=== PATIENT | male | born 1975 | race Caucasian/White ===

== ENCOUNTER 2020-01-29 15:07 | Emergency (ER) | payer MEDICAID ==
--- NOTE | 2020-01-29 16:10 | EDM.PDOC ---
ED HPI GENERAL MEDICAL PROBLEM - General Chief Complaint: Skin Complaint Stated Complaint: MAYBE AN INFECTION IN RIGHT UPPER LEG/BACK Time Seen by Provider: 01/29/20 15:10 Source of Information: Reports: Patient History Limitations: Reports: No Limitations - History of Present Illness INITIAL COMMENTS - FREE TEXT/NARRATIVE: took testosterone injection in the right gluteal region about one week ago , since then has swelling in the area that has persisted and increased in size , now getting painful has been on testosterone injections for a long time takes in different sites used to take to build muscle now has low testosterone Onset: Gradual Onset Date: 01/22/20 Duration: Day(s): (7), Getting Worse Location: Reports: Pelvis Quality: Reports: Ache Associated Symptoms: Reports: No Other Symptoms - Related Data Allergies Allergy/AdvReac Type Severity Reaction Status Date / Time No Known Allergies Allergy Verified 01/29/20 16:13 Home Meds: Home Meds Diclofenac Sodium [Voltaren 1% Gel] 1 applic TOP BID #1 tube 01/29/20 [Rx] ED ROS GENERAL - Review of Systems Review Of Systems: See Below Constitutional: Reports: No Symptoms, Fever, Chills, Malaise HEENT: Reports: No Symptoms Respiratory: Reports: No Symptoms Cardiovascular: Reports: No Symptoms Endocrine: Reports: No Symptoms GI/Abdominal: Reports: No Symptoms Skin: Reports: Lesions (in right gluteal region), Lumps ED EXAM, SKIN/RASH Exam: See Below Exam Limited By: No Limitations General Appearance: Alert, WD/WN, No Apparent Distress Eye Exam: Bilateral Eye: EOMI Ears: Normal External Exam Throat/Mouth: Normal Oropharynx Head: Atraumatic, Normocephalic Neck: Supple, Non-Tender Respiratory/Chest: No Respiratory Distress, Lungs Clear, Normal Breath Sounds Cardiovascular: Regular Rate, Rhythm GI/Abdominal: Soft, Non-Tender Back Exam: Other (gluteal swelling) Neurological: Alert, Oriented, CN II-XII Intact Skin: Other (right gluteal swwelling about [id number], tender firm to hard, non fluctuant) Course - Orders/Labs/Meds Labs: Laboratory Tests 01/29/20 01/29/20 01/29/20 Range/Units 15:48 16:03 16:03 WBC 10.9 (4.5-12.0) X10-3/uL RBC 4.97 (4.30-5.75) x10(6)uL Hgb 15.0 (13.5-17.8) g/dL Hct 44.6 (30.0-51.3) % MCV 89.7 (80-96) fL MCH 30.1 (27.7-33.6) pg MCHC 33.6 (32.2-35.4) g/dL RDW 13.0 (11.5-15.5) % Plt Count 398 H (125-369) X10(3)uL MPV 7.4 (7.4-10.4) fL Neut % (Auto) 82.8 H (46-82) % Lymph % (Auto) 10.1 L (13-37) % [place] % (Auto) 5.9 (4-12) % Eos % (Auto) 1 (1.0-5.0) % Baso % (Auto) 0 (0-2) % Neut # (Auto) 9.1 H (1.6-8.3) # Lymph # (Auto) 1.1 (0.6-5.0) # [place] # (Auto) 0.6 (0.0-1.3) # Eos # (Auto) 0.1 (0.0-0.8) # Baso # (Auto) 0.0 (0.0-0.2) # Sodium 136 (135-145) mmol/L Potassium 4.4 (3.5-5.3) mmol/L Chloride 98 L (100-110) mmol/L Carbon Dioxide 30 (21-32) mmol/L BUN 15 (7-18) mg/dL Creatinine 1.3 (0.70-1.30) mg/dL Est Cr Clr Drug Dosing TNP Estimated GFR (MDRD) 59 L (>60) BUN/Creatinine Ratio 11.5 (9-20) Glucose 78 L (80-116) mg/dL Calcium 9.6 (8.6-10.2) mg/dL C-Reactive Protein (0.5-0.9) mg/dL Urine Color Yellow (YELLOW) Urine Appearance Clear (CLEAR) Urine pH 7.0 H (5.0-6.5) Ur Specific [place] 1.005 L (1.010-1.025) Urine Protein Negative (NEGATIVE) mg/dL Urine Glucose (UA) Normal (NORMAL) mg/dL Urine Ketones Negative (NEGATIVE) mg/dL Urine Occult Blood Moderate H (NEGATIVE) Urine Nitrite Negative (NEGATIVE) Urine Bilirubin Negative (NEGATIVE) Urine Urobilinogen Normal (NEGATIVE) mg/dL Ur Leukocyte Esterase Negative (NEGATIVE) Urine RBC 0-5 (0-5) Urine WBC 0-5 (0-5) Ur Squamous Epith Cells Few H (NS,R,O) Urine Bacteria Few H (NS) 01/29/20 Range/Units 16:03 WBC (4.5-12.0) X10-3/uL RBC (4.30-5.75) x10(6)uL Hgb (13.5-17.8) g/dL Hct (30.0-51.3) % MCV (80-96) fL MCH (27.7-33.6) pg MCHC (32.2-35.4) g/dL RDW (11.5-15.5) % Plt Count (125-369) X10(3)uL MPV (7.4-10.4) fL Neut % (Auto) (46-82) % Lymph % (Auto) (13-37) % [place] % (Auto) (4-12) % Eos % (Auto) (1.0-5.0) % Baso % (Auto) (0-2) % Neut # (Auto) (1.6-8.3) # Lymph # (Auto) (0.6-5.0) # [place] # (Auto) (0.0-1.3) # Eos # (Auto) (0.0-0.8) # Baso # (Auto) (0.0-0.2) # Sodium (135-145) mmol/L Potassium (3.5-5.3) mmol/L Chloride (100-110) mmol/L Carbon Dioxide (21-32) mmol/L BUN (7-18) mg/dL Creatinine (0.70-1.30) mg/dL Est Cr Clr Drug Dosing Estimated GFR (MDRD) (>60) BUN/Creatinine Ratio (9-20) Glucose (80-116) mg/dL Calcium (8.6-10.2) mg/dL C-Reactive Protein 10.3 H* (0.5-0.9) mg/dL Urine Color (YELLOW) Urine Appearance (CLEAR) Urine pH (5.0-6.5) Ur Specific [place] (1.010-1.025) Urine Protein (NEGATIVE) mg/dL Urine Glucose (UA) (NORMAL) mg/dL Urine Ketones (NEGATIVE) mg/dL Urine Occult Blood (NEGATIVE) Urine Nitrite (NEGATIVE) Urine Bilirubin (NEGATIVE) Urine Urobilinogen (NEGATIVE) mg/dL Ur Leukocyte Esterase (NEGATIVE) Urine RBC (0-5) Urine WBC (0-5) Ur Squamous Epith Cells (NS,R,O) Urine Bacteria (NS) Meds: Medications Discontinued Medications Generic Name Dose Route Start Last Admin Trade Name Freq PRN Reason Stop Dose Admin Diclofenac Sodium 1 gm 01/29/20 16:14 Voltaren 1% Gel TOP 01/29/20 16:15 ONETIME ONE - Re-Assessments/Exams Free Text/Narrative Re-Assessment/Exam: 01/29/20 16:10 pt declined to have NSAID ( states due to heart condition ) Departure - Departure Time of Disposition: 16:28 Disposition: Home, Self-Care 01 Condition: Fair Clinical Impression: Hematoma of injection site, Swelling at injection site, Inflammation at injection site - Discharge Information *PRESCRIPTION DRUG MONITORING PROGRAM REVIEWED*: Not Applicable *COPY OF PRESCRIPTION DRUG MONITORING REPORT IN PATIENT [place]ISETTE: Not Applicable Prescriptions: Diclofenac Sodium [Voltaren 1% Gel] 1 applic TOP BID #1 tube Instructions: Post-Injection Inflammatory Reaction Referrals: PCP,None [Primary Care Provider] - Forms: ED Department Discharge Additional Instructions: 1)Warm compress to affected area of gluteal region 3 times a day for 20 mins 2) Intense gluteal massage of the area as often as possible 3) Avoid any skin tear in the area of the swelling to avoid introducing infection 4) Follow up with your PCP if signs of infection appear ( redness, increased pain , soft yellow skin , fever and chills) Sepsis Event Note - Focused Exam Date Exam was Performed: 01/29/20 Time Exam was Performed: 16:26
[2020-01-29] MEDS ORDERED: Diclofenac Sodium 1% Gel 100 GM Tube TOP ONE (16:14)
== END 2020-01-29 16:30 | disposition home or self-care (01) ==
LOC: FB.ED 15:07
DX: N50.1 Vascular disorders of male genital organs (principal)
CPT/HCPCS: 36415; 80048; 81001; 85025; 86140; 99283; A9270-GY

== ENCOUNTER 2025-04-29 20:12 | Emergency (ER) | payer OTHER ==
[2025-04-29] MEDS ORDERED: Acetaminophen/HYDROcodone 325-5 MG Tab PO ONE (20:13)
[2025-04-29] MEDS: Ketorolac 30 MG/ML SDV IVPUSH ONE (20:33)
[2025-04-29 20:39] LABS: MEAN PLATELET VOLUME 7.0 fL (6.7-11.0); PLATELET COUNT,PLT 346 x10(3)uL (117-477); RED BLOOD CELL COUNT 5.34 x10(6)uL (3.90-5.90); RED CELL DISTRIBUTION WIDTH 15.5 % (12.4-15.0); WHITE BLOOD CELL COUNT,WBC 17.2 x10-3/uL (3.2-10.1)
[2025-04-29 20:45] LABS: BLOOD UREA NITROGEN,BUN 15 mg/dL (7-18); CARBON DIOXIDE,CO2 27 mmol/L (21-32); CHLORIDE,CL 98 mmol/L (100-110); CREATININE 1.2 mg/dL (0.70-1.30); ESTIMATED GFR 73 mL/min (>60); GLUCOSE RANDOM 92 mg/dL (80-116); POTASSIUM,K 4.5 mmol/L (3.5-5.3); SODIUM,NA 134 mmol/L (135-145)
[2025-04-29] MEDS: HYDROmorphone 2 MG/ML SDV IVPUSH ONE ×2 (20:46→21:35)
[2025-04-29 20:51] LABS: A/G RATIO 0.8; ALANINE AMINOTRANSFERASE,ALT 72 U/L (12-36); ASPARTATE AMNIOTRANSFERASE,AST 56 IU/L (5-25); BILIRUBIN TOTAL 0.8 mg/dL (0.1-1.3); PROTEIN TOTAL,TP 7.5 g/dL (6.0-8.0)
[2025-04-29 20:57] LABS: LYMPHOCYTES PERCENT MAN 5 % (13-37); MONOCYTES PERCENT MAN 12 % (4-12); SEG NEUTROPHILS PERCENT MAN 83 % (46-82)
== END 2025-04-29 22:58 | disposition home or self-care (01) ==
LOC: FB.ED 20:12
DX: L03.115 Cellulitis of right lower limb (principal); I10 Essential (primary) hypertension; I25.2 Old myocardial infarction; Z79.899 Other long term (current) drug therapy
CPT/HCPCS: 36415; 80053; 85025; 86140; 96361; 96374; 96375; 96376; 99283; A9270; J0696; J1171; J1885; J7030